=== PATIENT | male | born 1995 | race Hispanic/Latino ===

== ENCOUNTER 2019-03-24 09:11 | Emergency (ER) | payer BC ==
[2019-03-24 09:24] VITALS: BP 124/84; PULSE 77; RESP 18; O2SAT 100; BMI 26.4
[2019-03-24 10:46] VITALS: TEMP 98.5
--- NOTE | 2019-03-24 12:03 | ED PDOC ---
Lower Extremity Pain/Injury Time Seen by Provider: 03/24/19 09:56 Chief Complaint (Nursing): Lower Extremity Problem/Injury Chief Complaint (Provider): Lower Extremity Problem/Injury History Per: Patient History/Exam Limitations: no limitations Onset/Duration Of Symptoms: Days (x2) Current Symptoms Are (Timing): Still Present Additional Complaint(s): 23 year old male presents to the emergency department for an evaluation of right, posterior leg pain status post playing soccer yesterday. Patient reports he attempted to kick the ball backwards with right heel but stopped immediately when he lifted his right leg while left leg remain planted on the ground. This morning, patient states he woke up with severe pain and has difficulty performing his daily routine. Patient expresses concern as he is uncomfortable in sitting position, in which, his job requires prolong seating. PCP: none provided Past Medical History Reviewed: Historical Data, Nursing Documentation, Vital Signs Vital Signs: Last Vital Signs Temp 98.5 F 03/24/19 10:35 Pulse 77 03/24/19 09:19 Resp 18 03/24/19 09:19 BP 124/84 03/24/19 09:19 Pulse Ox 100 03/24/19 09:19 Primary Care Provider: Procedure,Nonphys - Medical History PMH: No Chronic Diseases - Surgical History Surgical History: No Surg Hx - Family History Family History: States: Unknown Family Hx - Home Medications Home Medications: Ambulatory Orders Medication Instructions Recorded Cyclobenzaprine [Cyclobenzaprine 10 mg PO BID PRN #20 tab 03/24/19 HCl] Ibuprofen [Motrin Tab] 800 mg PO Q6 #30 tab 03/24/19 - Allergies Allergies/Adverse Reactions: Allergies Allergy/AdvReac Type Severity Reaction Status Date / Time Penicillins Allergy RASH Verified 03/24/19 09:31 Review of Systems ROS Statement: Except As Marked, All Systems Reviewed And Found Negative Musculoskeletal: Positive for: Leg Pain (right-sided posterior) Physical Exam - Reviewed Nursing Documentation Reviewed: Yes Vital Signs Reviewed: Yes - Physical Exam Appears: Positive for: Uncomfortable Pulses-Dorsalis Pedis (L): 2+ Pulses-Dorsalis Pedis (R): 2+ Extremity: Positive for: Normal ROM (hip/knee/ankles bilaterally), Tenderness (right mid-hamstring on flexion of hip). Negative for: Swelling (or visible ecchymosis to right hamstring), Other - ECG O2 Sat by Pulse Oximetry: 100 (RA) Pulse Ox Interpretation: Normal Medical Decision Making Medical Decision Making: Time: 1010 Initial Plan: work up for muscle tear. no indication for imaging at this time. Patient is presently medically stable and requires no further treatment in the ED at this time. Will discharge home with medications for pain control and referral to ortho. Patient is also provided with note for work absence. Counseling was provided and all questions were answered regarding diagnosis. There is agreement to discharge plan. Return precautions discussed. Clinical Impression: hamstring injury Scribe Attestation: Documented by Kimi Blas, acting as a scribe for Kassie Abbott MD. Provider Scribe Attestation: All medical record entries made by the Scribe were at my direction and personally dictated by me. I have reviewed the chart and agree that the record accurately reflects my personal performance of the history, physical exam, medical decision making, and the department course for this patient. I have also personally directed, reviewed, and agree with the discharge instructions and disposition. Disposition - Clinical Impression Clinical Impression: Hamstring injury - Patient ED Disposition Is Patient to be Admitted: No Counseled Patient/Family Regarding: Diagnosis, Need For Followup, Rx Given - Disposition Referrals: Jessica Cotton MD [Staff Provider] - Disposition: Routine/Home Disposition Time: 10:10 Condition: STABLE Prescriptions: Cyclobenzaprine [Cyclobenzaprine HCl] 10 mg PO BID PRN #20 tab PRN Reason: Muscle Spasm Ibuprofen [Motrin Tab] 800 mg PO Q6 #30 tab Instructions: Hamstring Injury Forms: [employer] ([place]), [facility] ED School/Work Excuse Print Language: [id number]
== END 2019-03-24 10:35 | disposition home or self-care (01) ==
LOC: H.ER 09:11
DX: S76.312A Strain of muscle, fascia and tendon of the posterior muscle group at thigh level, left thigh, initial encounter (principal); X50.9XXA Other and unspecified overexertion or strenuous movements or postures, initial encounter; Y92.322 Soccer field as the place of occurrence of the external cause